=== PATIENT | male | born 1955 | race Two or more races ===

== ENCOUNTER 2019-02-12 19:22 | Inpatient (IN) | payer MEDICAID ==
[~2019-02-12] VITALS: Ht 165.1 cm; Wt 101.6 kg
--- NOTE | 2019-02-12 19:32 | NUR ---
PT BIB EMS. AAOX4. PT C/O ABD PAIN 7/10 AND DIZZINESS. UPON ASSESSMENT PT ABD IS DISTENDED. PT PLACED ON CONTINIOUS TEACHER DRAMA AND PULSE OX. NO ACUTE DISTRESS NOTED.
[2019-02-12] MEDS ORDERED: IV NS 0.9% 500 ML BAG IV ONE ×2 (20:00→22:30)
[2019-02-12 20:25] LABS: BASOPHILS % (AUTO) 0.3 % (0.0-2.0); EOSINOPHILS % (AUTO) 0.7 % (0.0-6.0); HEMATOCRIT 28 % (39-51); HEMOGLOBIN 9.7 g/dL (13.5-17.5); LYMPHOCYTES # (AUTO) 0.5 /CMM (0.8-4.8); MEAN CORPUSCULAR HGB CONC 35 g/dl (31.0-36.0); MEAN CORPUSCULAR VOLUME 108 fL (80-96); MONOCYTES # (AUTO) 0.9 /CMM (0.1-1.30); MONOCYTES % (AUTO) 7.2 % (2.0-12.0); NEUTROPHILS % (AUTO) 87.8 % (43.0-81.0); PLATELET COUNT (AUTO) 108 /CMM (150-450); RED BLOOD CELL COUNT(AUTO) 2.57 MIL/uL (4.5-6.0); WHITE BLOOD COUNT (AUTO) 12.5 K/uL (4.3-11.0)
--- NOTE | 2019-02-12 20:30 | NUR ---
JONATHON LEFT CONTACT INFO. RHONDA FISCHER CELL PHONE . HOME PHONE .
--- NOTE | 2019-02-12 20:33 | NUR ---
URINE COLLECTED AND SENT TO LAB.
[2019-02-12 20:45] LABS: ALANINE AMINOTRANSFERASE 55 U/L (12-78); ALBUMIN 1.5 g/dL (3.4-5.0); ALKALINE PHOSPHATASE 123 U/L (46-116); ASPARTATE AMINOTRANSFERASE 93 U/L (15-37); BILIRUBIN,TOTAL 12.1 mg/dL (0.2-1.0); CALCIUM, SERUM 9.2 mg/dL (8.5-10.1); CARBON DIOXIDE 23 mmol/L (21-32); CHLORIDE 83 mmol/L (98-107); CREATININE 2.6 mg/dL (0.6-1.3); GLUCOSE 88 mg/dL (74-106); LIPASE 233 U/L (73-393); POTASSIUM 5.9 mmol/L (3.5-5.1); TOTAL PROTEIN, SERUM 7.2 g/dL (6.4-8.2); UREA NITROGEN, BLOOD 58 mg/dL (7-18)
[2019-02-12 20:54] LABS: SERUM AMMONIA 5 umol/L (11-32)
[2019-02-12 20:55] LABS: SODIUM SERUM 111 mmol/L (136-145)
[2019-02-12 20:57] LABS: APPEARANCE,URINE Cloudy (CLEAR); BILIRUBIN,URINE MODERATE (NEGATIVE); BLOOD, URINE Large Ery/uL (NEGATIVE); COLOR,URINE Brown (YELLOW); KETONES,URINE Negative (NEGATIVE); LEUKOCYTE ESTERASE ,URINE Negative (NEGATIVE); NITRITE, URINE Negative (NEGATIVE); PROTEIN,URINE Negative (NEGATIVE); UGLUCOSE Negative (NEGATIVE); UROBILINOGEN,URINE 0.2 EU/dL (0.2)
--- NOTE | 2019-02-12 20:58 | NUR ---
XRAY AT BEDSIDE
[2019-02-12 21:00] LABS: BAND % (MANUAL) 22 % (0.0-5.0); LYMPHOCYTES % (MANUAL) 8 % (16-48); MONOCYTES % (MANUAL) 9 % (0-11.0); NEUTROPHILS % (MANUAL) 61 (42-76)
--- NOTE | 2019-02-12 21:06 | NUR ---
Patient is resting comfortably in bed. Easily aroused. VSS. PAIN 0/10.
[2019-02-12 21:12] LABS: BACTERIA,URINE Few /HPF (None Seen); SQUAMOUS EPITHELIAL CELL,UR Few /HPF (None Seen); URINE AMORPHOUS URATE Moderate /HPF (None Seen); WBC,URINE 0-2 /HPF (0-3)
[2019-02-12] MEDS ORDERED: LIDOCAINE 1% INJ 50 ML MDV IJ ONE (21:30)
--- NOTE | 2019-02-12 21:41 | NUR ---
CALLED NURSING SUP FOR ICU BED.
[2019-02-12] MEDS ORDERED: MEROPENEM 1 G in IV NS 0.9% 100 ML IV ONE (22:00)
[2019-02-12] MEDS ORDERED: VANCOMYCIN 1 GM in IV D5W 250 ML IV ONE (22:00)
[2019-02-12] MEDS ORDERED: VANCOMYCIN 1 GM VIAL ONE (22:23)
[2019-02-12] MEDS ORDERED: MEROPENEM 1 G VIAL IV ONE (22:23)
[2019-02-12] MEDS ORDERED: MORPHINE SULFATE INJ 2 MG/ML DISP.SYRIN IV PRN (22:30)
[2019-02-12] MEDS ORDERED: ZOLPIDEM TARTRATE 5 MG TABLET PO PRN (22:30)
[2019-02-12] MEDS ORDERED: Z GUARD REMEDY 2 OZ OINT TP PRN (22:30)
[2019-02-12] MEDS ORDERED: ONDANSETRON HCL/PF 4 MG/2 ML VIAL IVP PRN (22:30)
[2019-02-12] MEDS ORDERED: IV Sodium Chloride 3% 500 ML 500 ML IV ONE (22:30)
[2019-02-12] MEDS ORDERED: FURO-144 PO (22:55)
[2019-02-12] MEDS ORDERED: THIA100V2 PO (22:55)
[2019-02-12] MEDS ORDERED: FOLI1TAB16 PO (22:55)
[2019-02-12] MEDS ORDERED: LACT10SO PO (22:55)
[2019-02-12] MEDS ORDERED: SPIR50TA PO (22:55)
[2019-02-12] MEDS ORDERED: LISI10TA5 PO (22:55)
[2019-02-12] MEDS ORDERED: RIFA550T PO (22:55)
[2019-02-12] MEDS ORDERED: SENN-168 PO (22:55)
[2019-02-12] MEDS ORDERED: SODIUM BICARBONATE SYR 50 MEQ/50 ML DISP.SYRIN ONE (22:56)
[2019-02-12] MEDS ORDERED: CEPHALEXIN MONOHYDRATE 250 MG CAPSULE PO ONE (22:56)
[2019-02-12] MEDS ORDERED: SODIUM BICARBONATE SYR 50 MEQ/50 ML DISP.SYRIN IV ONE (23:00)
[2019-02-12] MEDS ORDERED: NOREPINEPHRINE 16 MG in IV D5W 500 ML IV PRN (23:00)
[2019-02-12] MEDS ORDERED: SODIUM POLYSTYRENE SULFONATE 15 G/60 ML BOTTLE PO ONE (23:00)
[2019-02-12] MEDS ORDERED: SODIUM POLYSTYRENE SULFONATE 15 G/60 ML BOTTLE ONE (23:01)
--- NOTE | 2019-02-12 23:13 | NUR ---
PT BROUGHT TO CT.
--- NOTE | 2019-02-12 23:22 | NUR ---
PT BROUGHT BACK FROM CT.
[2019-02-12] MEDS ORDERED: LORAZEPAM INJ 2 MG/ML VIAL IV PRN (23:30)
[2019-02-13] VITALS (10 sets, daily range): BP systolic 52–96; BP diastolic 32–58
--- NOTE | 2019-02-13 00:06 | NUR ---
PT NOTED W/ LOW BP AND EXCESSIVE NOSE BLEED. DR DANIEL AND CANDELARIO AUDIOVISUAL LIBRARIAN WAS CALLED AT THE BED SIDE W/ AN ORDER FOR INTUBATION.
--- NOTE | 2019-02-13 00:09 | NUR ---
PT WAS INTUBATED BY DR DANIEL AT THE BED SIDESUCCESSFULY . TOLARATED WELL
[2019-02-13] MEDS ORDERED: PROPOFOL 0 ML IV ONE (00:11)
[2019-02-13] MEDS ORDERED: PROPOFOL 100 ML ONE (00:12)
--- NOTE | 2019-02-13 00:13 | NUR ---
RFA PIV 18G STABLISHED W/ A GOOD BLOOD RETURN.
--- NOTE | 2019-02-13 00:14 | NUR ---
GAVE REPORT TO RHONDA العراقي FOR MERED[facility]
[2019-02-13] MEDS ORDERED: OCTREOTIDE 50 MCG in IV NS 0.9% 50 ML IV ONE (00:30)
[2019-02-13] MEDS ORDERED: PANTOPRAZOLE 80 MG in IV NS 0.9% 500 ML IV PRN (00:30)
[2019-02-13] MEDS ORDERED: PANTOPRAZOLE 80 MG in IV NS 0.9% 100 ML IV ONE (00:30)
[2019-02-13] MEDS ORDERED: OCTREOTIDE 1,250 MCG in IV NS 0.9% 247.5 ML IV PRN ×2 (00:30→02:30)
--- NOTE | 2019-02-13 00:30 | NUR ---
PER CANDELARIO BLANDON TECHNOLOGY INTEGRATION SPECIALIST HOLD ON TO PROPOFOL DRIP, NG TUBE AND F/C AT THIS TIME. WILL ENDORSE TO ICU NURSE
--- NOTE | 2019-02-13 00:40 | NUR ---
PT TRANSFERRED PER [facility] PROTOCOL
[2019-02-13] MEDS ORDERED: ROCURONIUM BROMIDE 50 MG/5 ML IV ONE (01:00)
[2019-02-13] MEDS ORDERED: IV NS 0.9% 500 ML IV ONE (01:00)
[2019-02-13] MEDS ORDERED: ETOMIDATE 2 MG/ML VIAL IV ONE (01:00)
[2019-02-13] MEDS ORDERED: PROPOFOL 100 ML IV PRN (01:00)
[2019-02-13 01:11] LABS: ABG BASE EXCESS -5.4 mmol/L; ABG PCO2 53.7 mmHg (35.0-45.0); ABG PH 7.232 (7.350-7.450); ABG PO2 83.9 mmHg (75.0-100.0); AaDO2 575.4 mmHg; COHb 1.5 % (0.5-1.5); MetHb 0.5 % (0.0-1.5); O2Hb 91.1 % (94.0-97.0); SITE, ABG Left Radial; VT, ABG 550 mL
--- NOTE | 2019-02-13 01:20 | NUR ---
MECHANIC INSULATOR NOTES RECEIVED PT FROM ER NURSE, ON TELE MONITOR SR 100. PT ON ET TUBE , MECH VENT SETTING SATURATING 97%. PT NOTED TO HAVE BLOODY SECRETION FROM MOUTH AND NOSE. SUCTIONING DONE. PT ON BILATERAL SOFT RESTRAINTS. HEAD OF BED ELEVATED. SIDE RAILS UP. CALL LIGHT WITHIN REACH. BED ALARM ON. BED IN LOW AND LOCKED POSITION. WILL MONITOR PT CLOSELY.
[2019-02-13] MEDS ORDERED: IV Sodium Chloride 3% 500 ML 500 ML IV ONE (01:22)
[2019-02-13] MEDS ORDERED: OCTREOTIDE 100 MCG/ML VIAL ONE (01:23)
[2019-02-13] MEDS ORDERED: OCTREOTIDE 500 MCG/ML VIAL ONE (01:24)
[2019-02-13] MEDS ORDERED: PANTOPRAZOLE 40 MG VIAL ONE ×2 (01:27→01:28)
--- NOTE | 2019-02-13 01:30 | NUR ---
SPIRAL TUBE WINDER NOTES PT OBTUNDED. RESTRAINTS RELEASE.
[2019-02-13] MEDS ORDERED: NOREPINEPHRINE 4 MG/4 ML AMPUL IV ONE (01:45)
[2019-02-13 02:42] LABS: BASOPHILS # (AUTO) 0.1 /CMM (0.0-0.2); LYMPHOCYTES # (AUTO) 0.7 /CMM (0.8-4.8); NEUTROPHILS % (AUTO) 85.1 % (43.0-81.0)
[2019-02-13] MEDS ORDERED: PHENYLEPHRINE 10 MG/ML VIAL ONE (02:51)
[2019-02-13 02:55] LABS: CALCIUM, SERUM 8.2 mg/dL (8.5-10.1); CREATININE 2.8 mg/dL (0.6-1.3); POTASSIUM 5.9 mmol/L (3.5-5.1)
--- NOTE | 2019-02-13 02:56 | NUR ---
STOCK UNLOADER NOTES PT UNSTABLE, WILL F/U WITH VACCINATIONS STATUS.
[2019-02-13] MEDS ORDERED: PHENYLEPHRINE 80 MG in IV D5W 250 ML IV PRN (03:00)
--- NOTE | 2019-02-13 03:00 | NUR ---
INFORMATION TECHNOLOGY PROGRAM MANAGER NOTES CANDELARIO SACK LIFTER UPDATED REGARDING PT CONDITION. ORDER RY FOR BLOOD PRESSURE SUPPORT.
[2019-02-13 03:13] LABS: BASOPHILS % (AUTO) 0.6 % (0.0-2.0); EOSINOPHILS % (AUTO) 2.4 % (0.0-6.0); HEMATOCRIT 24 % (39-51); HEMOGLOBIN 8.3 g/dL (13.5-17.5); LYMPHOCYTES % (AUTO) 5.7 % (20.0-44.0); MEAN CORPUSCULAR HGB CONC 35 g/dl (31.0-36.0); MEAN CORPUSCULAR VOLUME 109 fL (80-96); MONOCYTES # (AUTO) 0.8 /CMM (0.1-1.30); MONOCYTES % (AUTO) 6.2 % (2.0-12.0); NEUTROPHILS # (AUTO) 10.4 /CMM (1.8-8.9); PLATELET COUNT (AUTO) 101 /CMM (150-450); RED BLOOD CELL COUNT(AUTO) 2.17 MIL/uL (4.5-6.0); WHITE BLOOD COUNT (AUTO) 12.2 K/uL (4.3-11.0)
[2019-02-13] MEDS ORDERED: INSULIN REGULAR, HUMAN 100 UNIT/ML 3 ML VIAL IV ONE (03:30)
[2019-02-13] MEDS ORDERED: ALBUTEROL FS 2.5 MG/0.5 ML VIAL.NEB NEB PRN (03:30)
[2019-02-13] MEDS ORDERED: DEXTROSE 50%-WATER 50 ML DISP.SYRIN IVP ONE (03:30)
--- NOTE | 2019-02-13 03:50 | NUR ---
JOURNEYMAN PRESSMAN NOTES CALLED [facility] (RHONDA) REGARDING PT CONDITION. PER RHONDA, " DO EVERYTHING TO THE PT, INCLUDING CHEST COMPRESSION. "
--- NOTE | 2019-02-13 03:51 | NUR ---
WIND PROJECTS SUPERVISOR NOTES CALLED BLUE INITIATED. SEE CODE BLUE RECORD.
[2019-02-13] MEDS ORDERED: CALCIUM CHLORIDE 1,000 MG/10 ML DISP.SYRIN IV ONE ×2 (04:00→05:59)
[2019-02-13] MEDS ORDERED: EPINEPHRINE (1:10,000) SYRINGE 1 MG/10 ML DISP.SYRIN IVP ONE ×2 (04:00→05:59)
[2019-02-13] MEDS ORDERED: SODIUM BICARBONATE SYR 50 MEQ/50 ML DISP.SYRIN IV ONE ×2 (04:00→05:59)
--- NOTE | 2019-02-13 04:04 | NUR ---
NIPPLE MAKER NOTES [facility] CALLED TO STOP CPR. CODE BLUE TEAM INFORMED.
[2019-02-13 04:10] LABS: LYMPHOCYTES % (MANUAL) 5 % (16-48); NEUTROPHILS % (MANUAL) 90 (42-76)
[2019-02-13 04:11] LABS: MONOCYTES % (MANUAL) 5 % (0-11.0)
[2019-02-13 04:30] LABS: BASOPHILS # (AUTO) 0.1 /CMM (0.0-0.2); BASOPHILS % (AUTO) 0.5 % (0.0-2.0); EOSINOPHILS % (AUTO) 1.8 % (0.0-6.0); HEMATOCRIT 25 % (39-51); HEMOGLOBIN 8.7 g/dL (13.5-17.5); LYMPHOCYTES # (AUTO) 0.6 /CMM (0.8-4.8); LYMPHOCYTES % (AUTO) 4.7 % (20.0-44.0); MEAN CORPUSCULAR HGB CONC 35 g/dl (31.0-36.0); MEAN CORPUSCULAR VOLUME 111 fL (80-96); MONOCYTES # (AUTO) 0.2 /CMM (0.1-1.30); MONOCYTES % (AUTO) 1.9 % (2.0-12.0); NEUTROPHILS # (AUTO) 11.7 /CMM (1.8-8.9); NEUTROPHILS % (AUTO) 91.1 % (43.0-81.0); PLATELET COUNT (AUTO) 104 /CMM (150-450); RED BLOOD CELL COUNT(AUTO) 2.27 MIL/uL (4.5-6.0); WHITE BLOOD COUNT (AUTO) 12.8 K/uL (4.3-11.0)
--- NOTE | 2019-02-13 04:45 | NUR ---
BASS STRING WINDER NOTED CALLED [facility] # [id number] , CALLED CORONERS OFFICE, PER ANABEL , NOT A [facility] CASE AND OKAY TO RELEASE TO MORTUARY.
[2019-02-13 04:51] LABS: CALCIUM, SERUM 8.2 mg/dL (8.5-10.1); CREATININE 2.9 mg/dL (0.6-1.3); MAGNESIUM 2.4 mg/dL (1.8-2.4); PHOSPHORUS 6.9 mg/dL (2.5-4.9); POTASSIUM 5.9 mmol/L (3.5-5.1)
--- NOTE | 2019-02-13 05:00 | NUR ---
KETTLE OPERATOR NOTES POST MORTEM CARE DONE. BELONGING LIST WITH [facility], PER RHONDA, STILL DECIDING FOR THE MORTUARY.
[2019-02-13] MEDS ORDERED: PANTOPRAZOLE 40 MG TABLET.DR PO SCH (07:30)
[2019-02-13] MEDS ORDERED: SPIRONOLACTONE 25 MG TABLET PO SCH (09:00)
[2019-02-13] MEDS ORDERED: FUROSEMIDE 40 MG TABLET PO SCH (09:00)
[2019-02-13] MEDS ORDERED: MEROPENEM 500 MG in IV NS 0.9% 50 ML IV SCH (09:00)
[2019-02-13] MEDS ORDERED: LISINOPRIL (10MG) 10 MG TABLET PO SCH (09:00)
[2019-02-13] MEDS ORDERED: FOLIC ACID 1 MG TABLET PO SCH (09:00)
[2019-02-13] MEDS ORDERED: RIFAXIMIN 550 MG TABLET PO SCH (09:00)
[2019-02-13] MEDS ORDERED: LACTULOSE 10 G/15 ML UDC (PYXIS) PO SCH (09:00)
[2019-02-13] MEDS ORDERED: THIAMINE HCL 100 MG TABLET PO SCH (09:00)
[2019-02-13] MEDS ORDERED: SENNOSIDES 8.6 MG TABLET PO SCH (22:00)
== END 2019-02-13 06:00 | disposition expired | DRG 720 ==
LOC: ER 19:22 → ICU 02-13 00:31
PROVIDERS: ADMIT Nurse Practitioner Acute Care; ATTEND Nurse Practitioner Acute Care
PROC: 5A1935Z Respiratory Ventilation, Less than 24 Consecutive Hours (ICD-10-PCS; principal; 2019-02-13)
PROC: 0W9G3ZX Drainage of Peritoneal Cavity, Percutaneous Approach, Diagnostic (ICD-10-PCS; principal; 2019-02-13)
PROC: 0BH18EZ Insertion of Endotracheal Airway into Trachea, Via Natural or Artificial Opening Endoscopic (ICD-10-PCS; principal; 2019-02-13)
PROC: 5A12012 Performance of Cardiac Output, Single, Manual (ICD-10-PCS; principal; 2019-02-13)
DX: A41.9 Sepsis, unspecified organism (principal); K72.00 Acute and subacute hepatic failure without coma; N17.0 Acute kidney failure with tubular necrosis; R65.21 Severe sepsis with septic shock; J96.01 Acute respiratory failure with hypoxia; J96.02 Acute respiratory failure with hypercapnia; J18.9 Pneumonia, unspecified organism; D68.4 Acquired coagulation factor deficiency; D53.9 Nutritional anemia, unspecified; E11.9 Type 2 diabetes mellitus without complications; E87.1 Hypo-osmolality and hyponatremia; K72.10 Chronic hepatic failure without coma; K74.60 Unspecified cirrhosis of liver; E87.5 Hyperkalemia; I10 Essential (primary) hypertension; E87.2 Acidosis; B19.20 Unspecified viral hepatitis C without hepatic coma; I85.11 Secondary esophageal varices with bleeding
CPT/HCPCS: 36415; 36600; 49083; 71045-TC; 80048-TC; 80061-TC; 80076-TC; 81000-TC; 82140-TC; 82803-TC; 82962-TC; 83605-TC; 83690-TC; 83735-TC; 83935-TC; 84100-TC; 84484-TC; 85025-TC; 85730-TC; 87040-TC; 87070-TC; 87081-TC; 87086-TC; 87186-TC; 89051-TC; 94002-TC; 99082-TC; A4216; C9113; G0378; J0171; J1815; J2185; J2354; J2370; J2704; J3370; J3490; J7030; J7040; J7050; J7060